=== PATIENT | male | born 2000 | race American Indian/Alaskan Native ===

== ENCOUNTER 2024-03-18 02:19 | Emergency (ER) | payer BC ==
[~2024-03-18] VITALS: Ht 198.1 cm; Wt 100.0 kg
[2024-03-18 02:38] VITALS: O2SAT 98
[2024-03-18] MEDS ORDERED: FOLIC ACID 1 MG, THIAMINE HCL 100 MG, MVI, ADULT NO.1 10 ML in DEXTROSE 5% WATER 1,000 ML IV ONE (03:00)
[2024-03-18] MEDS: SODIUM CHLORIDE 0.9% 1,000 ML IV ONE (03:01)
[2024-03-18 03:19] LABS: BASOPHILS % 0.5 % (0.0-2.0); HEMATOCRIT. 53.8 % (42.0-52.0); HEMOGLOBIN. 18.1 g/dL (14.0-18.0); LYMPHOCYTES % 49.9 % (20.0-50.0); MEAN CORPUSCULAR HEMOGLOBIN 29.2 pg (28.0-32.0); MEAN CORPUSCULAR HGB CONC 33.5 g/dL (31.0-37.0); MEAN CORPUSCULAR VOLUME 87.1 fL (80.0-94.0); MEAN PLATELET VOLUME 7.7 fl (7.4-10.4); MONOCYTES % 5.5 % (2.0-8.0); NEUTROPHILS % 43.1 % (40.0-76.0); PLATELET 294 x1000/uL (130-400); RED BLOOD CELL COUNT 6.18 mill/uL (4.7-6.1); RED CELL DISTRIBUTION WIDTH 15.8 % (11.6-14.6); WHITE BLOOD COUNT 8.7 x1000/uL (4.5-11.0)
[2024-03-18] MEDS: PANTOPRAZOLE SODIUM 40 MG/VIAL IV STA (03:25)
[2024-03-18] MEDS: MAGNESIUM/ALUMINUM HYDROXIDE/SIMETHICONE 30ML UDC PO STA (03:26)
[2024-03-18 03:35] LABS: CARBON DIOXIDE 23 mEq/L (21-32); CHLORIDE 104 mEq/L (98-107); POTASSIUM 3.9 mEq/L (3.5-5.1); SODIUM 141 mEq/L (136-145)
[2024-03-18 03:41] LABS: GLUCOSE 105 mg/dL (70-105); UREA NITROGEN BLOOD 10 mg/dL (9-23)
[2024-03-18 03:42] LABS: ETHANOL BLOOD 300 mg/dL (<10)
[2024-03-18 03:43] LABS: ALANINE AMINOTRANSFERASE 79 IU/L (10-49); ALBUMIN 5.1 g/dL (3.2-4.8); ASPARTATE AMINOTRANSFERASE 79 IU/L (<34); BILIRUBIN DIRECT 0.1 mg/dL (<=3.0); BILIRUBIN TOTAL 0.4 mg/dL (0.1-1.0)
[2024-03-18] MEDS: FOLIC ACID 1 MG, THIAMINE HCL 100 MG, MVI, ADULT NO.1 10 ML in DEXTROSE 5% WATER 1,000 ML IV NR (03:55)
[2024-03-18 04:00] LABS: INR 1.2
[2024-03-18] MEDS ORDERED: ONDA4TAB50 MT (05:27)
[2024-03-18] MEDS ORDERED: MAG355OR21 MT (05:27)
[2024-03-18 09:46] VITALS: BP 130/78; PULSE 89; RESP 11; TEMP 36.66960; O2SAT 99
== END 2024-03-18 09:55 | disposition home or self-care (01) ==
LOC: ER 02:19
DX: F10.20 Alcohol dependence, uncomplicated (principal); K29.20 Alcoholic gastritis without bleeding; R11.2 Nausea with vomiting, unspecified; I10 Essential (primary) hypertension; Y90.8 Blood alcohol level of 240 mg/100 ml or more
CPT/HCPCS: 80076; 80048; 80320; 83690; 85025; 85610; 86850; 86900; 86901; 36415; 71045; 93005; 96367; 96365; 96366; 99285; J3490 ×2; J2470; J3411; J7070; G0480